=== PATIENT | male | born 1975 | race Caucasian/White ===

== ENCOUNTER 2017-02-21 16:38 | Emergency (ER) | payer MEDICAID ==
[2013-04-25 14:22] VITALS: BMI 36.6
[~2017-02-21 16:38] MED LIST: CARDIZEM CD180 MG PO; COREG12.5 MG PO; COREG6.25 MG PO; COUMADIN3 MG OR; COUMADIN5 MG PO; KLOR-CON 1010 MEQ PO; LASIX20 MG PO; LISINOPRIL5 MG PO; RYTHMOL225 MG PO
== END 2017-02-21 19:20 | disposition home or self-care (01) ==
LOC: D.ER 16:38
DX: S16.1XXA Strain of muscle, fascia and tendon at neck level, initial encounter (principal); W11.XXXA Fall on and from ladder, initial encounter; Y93.89 Activity, other specified; Y92.89 Other specified places as the place of occurrence of the external cause; I48.91 Unspecified atrial fibrillation; I10 Essential (primary) hypertension; I25.10 Atherosclerotic heart disease of native coronary artery without angina pectoris; J44.9 Chronic obstructive pulmonary disease, unspecified; I50.9 Heart failure, unspecified; F17.200 Nicotine dependence, unspecified, uncomplicated

== ENCOUNTER 2018-07-14 13:10 | Emergency (ER) | payer MEDICAID ==
[~2018-07-14] VITALS: Ht 188 cm; Wt 113.6 kg
[2018-07-14 13:39] VITALS: Ht 188 cm; Wt 113.6 kg
[2018-07-14] MEDS ORDERED: STERAPRED DS 1010 MG PO (15:07)
[2018-07-14] MEDS ORDERED: VALISONE 0.1% C15 GM TOPICAL (15:07)
[2018-07-14] MEDS ORDERED: DURICEF500 MG PO (15:19)
[2018-07-14 15:53] VITALS: BP 134/89
== END 2018-07-14 15:54 | disposition home or self-care (01) ==
LOC: D.ER 13:10
DX: L25.5 Unspecified contact dermatitis due to plants, except food (principal); I11.0 Hypertensive heart disease with heart failure; I50.9 Heart failure, unspecified; I25.10 Atherosclerotic heart disease of native coronary artery without angina pectoris; F17.200 Nicotine dependence, unspecified, uncomplicated